=== PATIENT | male | born 1930 | race African-American/Black ===

== ENCOUNTER 2019-03-31 12:47 | Emergency (ER) | payer OTHER ==
[~2019-03-31] VITALS: Ht 177.8 cm; Wt 75.0 kg
[2019-03-31] MEDS ORDERED: IPRATROPIUM BROMIDE (0.02%) 0.5MG/2.5ML NEB HHN STA (13:19)
[2019-03-31] MEDS ORDERED: METHYLPREDNISOLONE SOD SUCC 125 MG/2 ML VIAL IV STA (13:19)
[2019-03-31] MEDS ORDERED: LEVOFLOXACIN 750MG PREMIX 150 ML IV ONE (13:30)
[2019-03-31] MEDS ORDERED: ALBUTEROL (0.5%) 2.5MG/0.5ML NEB HHN ONE (13:30)
[2019-03-31] MEDS ORDERED: SODIUM CHLORIDE 0.9% 1000ML BAG (SEPSIS BOLUS) IV ONE (13:30)
[2019-03-31] MEDS ORDERED: METHYLPREDNISOLONE SOD SUCC 125 MG/2 ML VIAL IV ONE (13:30)
[2019-03-31 14:25] LABS: BASOPHILS % 0.5 % (0.0-2.0); EOSINOPHILS % 1.5 % (0.0-5.0); HEMATOCRIT. 38.3 % (42.0-52.0); HEMOGLOBIN. 12.4 g/dL (14.0-18.0); LYMPHOCYTES % 7.4 % (20.0-50.0); MEAN CORPUSCULAR VOLUME 83.8 fL (80.0-94.0); MEAN PLATELET VOLUME 8.3 fl (7.4-10.4); MONOCYTES % 8.4 % (2.0-8.0); NEUTROPHILS % 82.2 % (40.0-76.0); PLATELET 244 x1000/uL (130-400); RED BLOOD CELL COUNT 4.57 mill/uL (4.7-6.1); RED CELL DISTRIBUTION WIDTH 18.1 % (11.6-14.6)
[2019-03-31 14:29] LABS: CHLORIDE 105 mEq/L (98-107)
[2019-03-31 14:32] LABS: INR 1.1; PARTIAL THROMBOPLASTIN TIME 27.4 sec (23.4-31.0); PROTHROMBIN TIME 11.5 sec (9.6-11.0)
[2019-03-31 17:07] LABS: CLARITY URINE CLEAR (CLEAR); COLOR URINE YELLOW (YELLOW); KETONES URINE NEGATIVE (NEGATIVE); LEUKOCYTE ESTERASE URINE NEGATIVE (NEGATIVE); NITRITE URINE NEGATIVE (NEGATIVE); OCCULT BLOOD URINE NEGATIVE (NEGATIVE); PROTEIN URINE TRACE (NEGATIVE); SPECIFIC GRAVITY URINE 1.015 (1.005-1.030); UROBILINOGEN URINE 0.2 E.U./dL (0.2-1.0)
[2019-03-31 19:06] VITALS: BP 116/68
== END 2019-03-31 19:07 | disposition short-term general hospital (02) ==
LOC: ER 12:47
DX: J44.1 Chronic obstructive pulmonary disease with (acute) exacerbation (principal); I47.1 Supraventricular tachycardia; R55 Syncope and collapse; I10 Essential (primary) hypertension; Z88.6 Allergy status to analgesic agent
CPT/HCPCS: 36415; 70450; 71045; 80053; 81003; 83605; 84145; 84484; 85025; 85610; 85730; 87040; 87086; 93005; 94640; 96361; 96374; 96375; 96376; 99285; J1956; J2930; J7030; J7611